=== PATIENT | female | born 1945 | race Caucasian/White ===

== ENCOUNTER 2019-03-08 16:28 | Emergency (ER) | payer OTHER ==
[~2019-03-08] VITALS: Ht 172.7 cm; Wt 90.7 kg
[2019-03-08 16:30] VITALS: BP_SYST 119
--- NOTE | 2019-03-08 16:30 | NUR ---
Pt wheeled to bed 8
--- NOTE | 2019-03-08 16:31 | NUR ---
Pt [id number] BIB medical transport from [facility] for medical clearance prior to admission to [facility]. Pt unable to fully answer questions and follow commands. Denies pain at this time.
--- NOTE | 2019-03-08 16:32 | NUR ---
ER at bedside examining patient.
--- NOTE | 2019-03-08 17:20 | NUR ---
Pt laying in bed with no signs of distress
[2019-03-08 17:31] LABS: ANION GAP 13 (5-15); CALCIUM 9.4 mg/dL (8.4-11.0); CHLORIDE 95 mmol/L (98-107); CREATININE 1.64 mg/dL (0.55-1.30); GLUCOSE 88 mg/dL (70-99); POTASSIUM 3.9 mmol/L (3.5-5.1); SODIUM SERUM 131 mmol/L (136-145); UREA NITROGEN, BLOOD 43 mg/dL (8-21)
[2019-03-08 17:35] LABS: INR 1.1 (0.8-1.2); PROTHROMBIN TIME 11.4 SECS (9.5-12.5)
[2019-03-08 17:43] LABS: BASOPHILS # (AUTO) 0.1 K/uL (0.0-0.2); EOSINOPHILS # (AUTO) 0.2 K/uL (0.0-0.4); EOSINOPHILS % (AUTO) 2.2 % (0.0-4.0); HEMATOCRIT 47.2 % (36-48); HEMOGLOBIN 15.7 g/dL (12.0-16.0); LYMPHOCYTES # (AUTO) 3.4 K/uL (1.0-5.5); MEAN CORPUSCULAR HEMOGLOBIN 28 pg (27-31); MEAN CORPUSCULAR HGB CONC 33 % (32-36); MEAN CORPUSCULAR VOLUME 86 fL (79.0-98.0); MONOCYTES # (AUTO) 0.6 K/uL (0.0-1.0); MONOCYTES % (AUTO) 6.8 % (1.7-9.3); NEUTROPHILS # (AUTO) 4.4 K/uL (1.8-7.7); PLATELET COUNT (AUTO) 278 K/uL (130-430); RED BLOOD CELL COUNT(AUTO) 5.51 MIL/uL (4.2-6.2); RED CELL DISTRIBUTION WIDTH 16.9 % (9.0-15.0); WHITE BLOOD COUNT (AUTO) 8.6 K/uL (4.8-10.8)
[2019-03-08 17:44] LABS: ALANINE AMINOTRANSFERASE 26 U/L (12-78); AMYLASE 43 U/L (0-100); ASPARTATE AMINOTRANSFERASE 34 U/L (10-37); TOTAL BILIRUBIN 0.6 mg/dL (0.0-1.0)
[2019-03-08 18:12] LABS: ALBUMIN 3.9 g/dL (3.4-4.8); LIPASE 84 U/L (73-393)
[2019-03-08 18:13] LABS: ALCOHOL, BLOOD < 3 mg/dL (<10)
[2019-03-08 18:21] LABS: TRIGLYCERIDES 134 mg/dL (30-150)
[2019-03-08 18:22] LABS: CHOLESTEROL 153 mg/dL (<200); HDL CHOLESTEROL 33 mg/dL (>55); LDL CHOLESTEROL 95 mg/dL (<100)
--- NOTE | 2019-03-08 18:23 | NUR ---
Pt yelling and attempting to get out of bed. Pt re-oriented to room and placed in position of comfort.
[2019-03-08 18:30] LABS: ACETAMINOPHEN < 1 ug/mL (1-30)
[2019-03-08 20:06] LABS: BILIRUBIN,URINE 1+ (NEGATIVE); BLOOD, URINE NEGATIVE (NEGATIVE); CLARITY/URINE CLEAR (CLEAR); COLOR,URINE YELLOW (YELLOW); GLUCOSE,URINE NEGATIVE (NEGATIVE); KETONES,URINE NEGATIVE (NEGATIVE); LEUKOCYTE ESTERASE ,URINE 1+ (NEGATIVE); NITRITE, URINE NEGATIVE (NEGATIVE); PROTEIN URINE NEGATIVE (NEGATIVE); UROBILINOGEN,URINE 0.2 (0.2-1.0)
[2019-03-08 20:19] LABS: BACTERIA,URINE FEW /HPF (None Seen); MUCUS,URINE None Seen /LPF (None Seen); RBC,URINE 0-3 /HPF (0-3); WBC,URINE 20-50 /HPF (0-3)
[2019-03-08 20:30] LABS: BARBITURATE, URINE NEGATIVE (NEG <=200); BENZODIAZEPINE, URINE NEGATIVE (NEG <=150); CANNABINOID, URINE NEGATIVE (NEG <=50); COCAINE, URINE NEGATIVE (NEG <=150); METHAMPHETAMINES SCREEN,URINE NEGATIVE (NEG <=500); OPIATE, URINE NEGATIVE (NEG <=100); PHENCYCLIDINE SCREEN,URINE NEGATIVE (NEG <=25); UR TRICYCLIC ANTIDEPRESSANTS NEGATIVE (NEG <=300); URINE AMPHETAMINE NEGATIVE (NEG <=500); URINE METHADONE NEGATIVE (NEG <=200); URINE OXYCODONE SCREEN NEGATIVE (NEG <=100); URINE PROPOXYPHENE SCREEN NEGATIVE (NEG <=300)
--- NOTE | 2019-03-08 20:50 | NUR ---
Patient to be transferred to [facility]. Is being transferred due to higher level of care. Receiving facility has accepting physician and available space. ER physician has signed transfer form. Patient or responsible libertarian has agreed to transfer and signed form. Patient belongings inventoried and will be sent with patient. Copy of nursing notes, lab reports, EKG, Physicians Orders and X-rays to be sent with patient. Report called to Marc JONES at receiving facility. Receiving physician is Dr. Bolivar. Ambulance service has been called for transfer. ETA is now.
[2019-03-08 21:37] VITALS: BP_SYST 124
== END 2019-03-08 21:37 ==
LOC: SED 16:28
DX: F20.9 Schizophrenia, unspecified (principal); F31.9 Bipolar disorder, unspecified; K21.9 Gastro-esophageal reflux disease without esophagitis; Z86.59 Personal history of other mental and behavioral disorders; Z04.6 Encounter for general psychiatric examination, requested by authority
CPT/HCPCS: 36415; 71045; 80053; 80061; 80164; 80307; 81000; 82150; 83036; 83690; 85025; 85610; 85730; 87086; 87186; 99285; G0480; G0481; G0482